=== PATIENT | male | born 1980 | race Caucasian/White ===

== ENCOUNTER → 2020-12-17 13:15 | Outpatient (CLI) | payer BC, SELFPAY ==
--- NOTE | 2020-12-17 13:17 | DI.RAD.S_ITS ---
PROCEDURE: XR CERVICAL SPINE 4V OR 5V INDICATIONS: neck pain TECHNIQUE: 5 views of the cervical spine acquired. COMPARISON: None. FINDINGS: Bones: No fractures or dislocations to the C7 level. Oblique images demonstrate no bony foraminal stenoses. Soft tissues: No prevertebral soft tissue swelling. IMPRESSION: No acute abnormality. Dictated by: Tyree Montana M.D. on 12/17/2020 at 13:52 Approved by: Tyree Montana M.D. on 12/17/2020 at 13:52
== END ==
PROVIDERS: Family Provider Family Medicine; Referring Provider Physical Medicine & Rehabilitation; Visit Provider Physical Medicine & Rehabilitation
DX: M54.2 Cervicalgia (principal)
CPT/HCPCS: 72050

== ENCOUNTER → 2021-01-09 15:29 | Outpatient (CLI) | payer BC, SELFPAY ==
--- NOTE | 2021-01-09 15:30 | DI.MRI.S_ITS ---
PROCEDURE: MR CERVICAL SPINE WO CON INDICATIONS: Cervical myeloradiculopathy TECHNIQUE: Noncontrast sagittal T1 spin echo and T2 fast spin echo, sagittal STIR, foraminal oblique sagittal T2 fast spin echo, and axial gradient echo or T2 fast spin echo through the cervical spine. COMPARISON: None. FINDINGS: Image quality: Excellent. Alignment and Curvature: Straightening of the normal lordotic curvature. Trace retrolisthesis of C5 on C6 Bone Marrow: Marrow demonstrates normal overall signal. Spinal Cord: Visualized spinal cord has normal size and signal. No cerebellar tonsillar herniation. Paraspinous Soft Tissues: No paravertebral masses. Prevertebral soft tissues are normal in thickness. C2-C3: No canal stenosis or right foraminal narrowing. Mild left foraminal stenosis. C3-C4: No canal narrowing. Mild bilateral foraminal narrowing although left slightly greater than right. C4-C5: No canal stenosis. No foraminal stenosis identified. C5-C6: Central disc osteophyte protrusion with associated mild canal narrowing. Partial effacement of the anterior thecal sac. Moderate right foraminal stenosis with nerve root compression. Mild left foraminal narrowing. C6-C7: No canal stenosis. Mild right and left foraminal stenoses. C7-T1: No canal or foraminal narrowing IMPRESSION: C5-C6 central disc osteophyte protrusion with associated mild canal narrowing Moderate right C5-C6 foraminal stenosis. Additional mild bilateral foraminal narrowing as detailed above by spinal level. Dictated by: Vernon Valentine M.D. on 01/09/2021 at 16:21 Approved by: Vernon Valentine M.D. on 01/09/2021 at 16:39
== END ==
PROVIDERS: Family Provider Family Medicine; PCP Family Medicine; Referring Provider Physical Medicine & Rehabilitation; Visit Provider Physical Medicine & Rehabilitation
DX: M50.122 Cervical disc disorder at C5-C6 level with radiculopathy (principal); M48.02 Spinal stenosis, cervical region; G95.9 Disease of spinal cord, unspecified
CPT/HCPCS: 72141

== ENCOUNTER → 2021-03-03 10:12 | Outpatient (CLI) | payer BC, SELFPAY ==
[2021-03-03 12:37] LABS: COVID19 -Nasal RAPID Negative (Negative)
== END ==
PROVIDERS: Family Provider Family Medicine; PCP Family Medicine; Visit Provider Physical Medicine & Rehabilitation
DX: Z20.822 Contact with and (suspected) exposure to COVID-19 (principal)
CPT/HCPCS: 87635; C9803

== ENCOUNTER 2021-03-05 08:47 | Outpatient (CLI) | payer BC, SELFPAY ==
[2021-03-05] VITALS (9 sets, daily range): BP systolic 120–147; BP diastolic 73–91; PULSE 75–82; RESP 12–20; TEMP 37.1; O2SAT 97–100
--- NOTE | 2021-03-05 08:49 | DI.RAD.S_ITS ---
PROCEDURE: PAIN C/T INTERLAMINAR INJECT INDICATIONS: SPINAL STENOSIS COMPARISON: [facility], MR, MR CERVICAL SPINE WO CON, 01/09/2021, 15:40. FINDINGS: Fluoroscopic spot filming was performed to verify placement of a spinal needle at the C5-C6 level, as labeled on the films. Appropriate location of the needle tip was confirmed by injection of iodinated contrast. IMPRESSION: No significant intraprocedural abnormality. Dictated by: Chidi Garcia M.D. on 03/05/2021 at 10:05 Approved by: Chidi Garcia M.D. on 03/05/2021 at 10:05
[2021-03-05] MEDS: fentaNYL 100 MCG/2 ML INJ 50 MCG IV (09:38)
[2021-03-05] MEDS: MIDAZOLAM 5 MG/5 ML VIAL IV (09:38)
[2021-03-05] MEDS: BUPIVACAINE 0.25% (PF) VIAL 2 ML INJ (09:41)
[2021-03-05] MEDS: IOPAMIDOL 15 ML VIAL 3 ML INJ (09:41)
[2021-03-05] MEDS: DEXAMETHASONE 10 MG/ML VIAL 30 MG INJ (09:42)
--- NOTE | 2021-03-05 09:55 | P.PCN_ITS ---
Date/Time/Diagnoses Date of procedure: 03/05/21 Time of procedure: 09:55 Pre-procedure diagnosis: 1. CERVICAL STENOSIS, 2. CERVICAL HNP WITH UPPER EXTREMITY RADICULAR FEATURES Post-procedure diagnosis: same Procedure Notes Procedure: 1. FLUORSCOPICALLY GUIDED CONTRAST CONTROLLED INTERLAMINAR EPIDURAL STEROID INJECTION - C5/6 TL DEEJAY Indications: Kali is referred by Dr. Posada for treatment of Cervical HNP with Upper Extremity Paresthesias. Physician: Dillon Uribe Total Fluoroscopy time (seconds): 30 Total sedation minutes: 12 Complications: none Procedure in detail & Post-procedure care: FINDINGS Cervical Stenosis due to disc deterioration and nerve root irritation and nerve root irritation DESCRIPTION OF PROCEDURE Fluoroscopically guided, contrast-controlled C5/6 translaminar epidural steroid injection with conscious sedation. Following review of allergy and review of potential side effects and complications, including, but not necessarily limited to, infection, allergic reaction, local tissue breakdown, temporary as well as permanent nerve injury, stroke, paralysis, and possible , the patient indicated that patient understood and agreed to proceed. An informed consent document was signed by the patient, witnessed by a nurse, and placed in the patient's chart. Additionally, other treatment options including modalities, medications, and physical therapy were reviewed with the patient. After review of previous anaesthesic history and IV conscious sedation the patient was deemed safe to proceed with today?s procedure with IV conscious sedation as ASA class II designation. Safety time-out was performed to confirm patient ID, procedure to be performed and site of procedure. IV sedation was accomplished with a combination of 3mg of Versed and 50mcg of Fentanyl administered by the RN after DO order, titrated to patient comfort during the course of the procedure while the patient remained responsive to all verbal commands. In the prone position, following sterile prep and drape of the cervical region, the C5/6 translaminar space was identified fluoroscopically. The skin was anesthetized via a 25-gauge 1.5-inch needle with 1% lidocaine solution. At this point, a 25-gauge, 2.5-inch short bevel spinal needle was atraumatically introduced and advanced under fluoroscopic guidance into epidural space at the C5/6 translaminar space. Depth was confirmed on lateral view. Radiological data, including multiple fluoroscopic views of the cervical spine, reveal a spinal needle at the C5/6 translaminar space. Lateral views then show placement of the needle in the epidural space. Subsequent views show contrast material flowing superiorly and inferiorly in the epidural space. DSA fluoroscopy with live contrast injection, once again, confirmed no vascular or intrathecal uptake. At this point, using loss of resistance technique with saline and air, the epidural space was entered. Following negative aspiration, injection of ap proximately 1.5 cc of Isovue-200 with live fluoroscopy in the AP view confirmed epidural flow in the epidural space without vascular or intrathecal uptake observed. Subsequently, a test dose of 1cc of 1% lidocaine solution was injected and patient was observed for two minutes without signs or symptoms of complications, including abdominal pain, shortness of breath, bilateral upper or lower extremity weakness, nausea and vomiting, prior to steroid injection. At this point, 3cc or 30mg of dexamethasone was then injected without incident. The patient tolerated the procedure well without signs or symptoms of complications prior to being transferred to the recovery area for further monitoring, The patient was then transferred to the recovery area where they were observed for an appropriate period of time after the injection. The patient reported a VAS score of 6 prior to the procedure and a post-procedure VAS of 0. POST OP INSTRUCTIONS The patient was provided a Pain Log to continue to record their response to the target-specific procedure prior to follow-up visit with the referring provider. Additionally, specific post-injection care instructions and a contact number to our office were provided if concerns arise regarding possible complications associated with the procedure are suspected.
== END 2021-03-05 10:17 | disposition home or self-care (01) ==
PROVIDERS: Family Provider Family Medicine; PCP Family Medicine; Referring Provider Physical Medicine & Rehabilitation; Visit Provider Physical Medicine & Rehabilitation
DX: M48.02 Spinal stenosis, cervical region (principal); M50.122 Cervical disc disorder at C5-C6 level with radiculopathy
CPT/HCPCS: 62321; 99152; J1100; J2250; J3010

== ENCOUNTER → 2021-05-26 10:14 | Outpatient (CLI) | payer BC, SELFPAY ==
[2021-05-26 11:22] LABS: COVID19 -Nasal RAPID Negative (Negative)
== END ==
PROVIDERS: Family Provider Family Medicine; PCP Family Medicine; Visit Provider Physical Medicine & Rehabilitation
DX: Z20.822 Contact with and (suspected) exposure to COVID-19 (principal)
CPT/HCPCS: 87635; C9803

== ENCOUNTER 2021-05-28 08:45 | Outpatient (CLI) | payer BC, SELFPAY ==
[2021-05-28] VITALS (10 sets, daily range): BP systolic 118–140; BP diastolic 75–96; PULSE 69–80; RESP 15–20; TEMP 36.3; O2SAT 98–100
--- NOTE | 2021-05-28 08:47 | DI.RAD.S_ITS ---
PROCEDURE: PAIN C/T INTERLAMINAR INJECT INDICATIONS: SPINAL STENOSIS COMPARISON: [facility], , PAIN C/T INTERLAMINAR INJECT, 03/05/2021, 10:42. FINDINGS: Fluoroscopic spot filming was performed to verify placement of a spinal needle at the C5-C6 level, as labeled on the films. Appropriate location of the needle tip was confirmed by injection of iodinated contrast. IMPRESSION: No significant intraprocedural abnormality. Dictated by: Chidi Garcia M.D. on 05/28/2021 at 9:48 Approved by: Chidi Garcia M.D. on 05/28/2021 at 9:48
[2021-05-28] MEDS: MIDAZOLAM 2 MG/2 ML VIAL IV (09:27)
[2021-05-28] MEDS: fentaNYL 100 MCG/2 ML INJ (09:33)
[2021-05-28] MEDS: IOPAMIDOL 15 ML VIAL 3 ML INJ (09:37)
[2021-05-28] MEDS: BUPIVACAINE 0.25% (PF) VIAL 30 ML (09:42)
[2021-05-28] MEDS: DEXAMETHASONE 10 MG/ML VIAL 30 MG INJ (09:43)
--- NOTE | 2021-05-28 09:54 | P.PCN_ITS ---
Date/Time/Diagnoses Date of procedure: 05/28/21 Time of procedure: 09:54 Pre-procedure diagnosis: 1. CERVICAL STENOSIS, 2. CERVICAL HNP WITH UPPER EXTREMITY RADICULAR FEATURES Post-procedure diagnosis: same Procedure Notes Procedure: 1. FLUORSCOPICALLY GUIDED CONTRAST CONTROLLED INTERLAMINAR EPIDURAL STEROID INJECTION - C5/6 TL DEEJAY Indications: Kali is referred by Dr. Posada for treatment of Cervical HNP with Upper Extremity Paresthesias. Physician: Dillon Uribe Total Fluoroscopy time (seconds): 34 Total sedation minutes: 18 Complications: none Procedure in detail & Post-procedure care: FINDINGS Cervical Stenosis due to disc deterioration and nerve root irritation and nerve root irritation DESCRIPTION OF PROCEDURE Fluoroscopically guided, contrast-controlled C5/6 translaminar epidural steroid injection with conscious sedation. Following review of allergy and review of potential side effects and complications, including, but not necessarily limited to, infection, allergic reaction, local tissue breakdown, temporary as well as permanent nerve injury, stroke, paralysis, and possible , the patient indicated that patient understood and agreed to proceed. An informed consent document was signed by the patient, witnessed by a nurse, and placed in the patient's chart. Additionally, other treatment options including modalities, medications, and physical therapy were reviewed with the patient. After review of previous anaesthesic history and IV conscious sedation the patient was deemed safe to proceed with today?s procedure with IV conscious sedation as ASA class II designation. Safety time-out was performed to confirm patient ID, procedure to be performed and site of procedure. IV sedation was accomplished with a combination of 2mg of Versed and 50mcg of Fentanyl administered by the RN after DO order, titrated to patient comfort during the course of the procedure while the patient remained responsive to all verbal commands. In the prone position, following sterile prep and drape of the cervical region, the C5/6 translaminar space was identified fluoroscopically. The skin was anesthetized via a 25-gauge 1.5-inch needle with 1% lidocaine solution. At this point, a 25-gauge, 2.5-inch short bevel spinal needle was atraumatically introduced and advanced under fluoroscopic guidance into epidural space at the C5/6 translaminar space. Depth was confirmed on lateral view. Radiological data, including multiple fluoroscopic views of the cervical spine, reveal a spinal needle at the C5/6 translaminar space. Lateral views then show placement of the needle in the epidural space. Subsequent views show contrast material flowing superiorly and inferiorly in the epidural space. DSA fluoroscopy with live contrast injection, once again, confirmed no vascular or intrathecal uptake. At this point, using loss of resistance technique with saline and air, the epidural space was entered. Following negative aspiration, injection of ap proximately 1.5 cc of Isovue-200 with live fluoroscopy in the AP view confirmed epidural flow in the epidural space without vascular or intrathecal uptake observed. Subsequently, a test dose of 1 cc of 1% lidocaine solution was injected and patient was observed for two minutes without signs or symptoms of complications, including abdominal pain, shortness of breath, bilateral upper or lower extremity weakness, nausea and vomiting, prior to steroid injection. At this point, 3cc or 30mg of dexamethasone was then injected without incident. The patient tolerated the procedure well without signs or symptoms of complications prior to being transferred to the recovery area for further monitoring, The patient was then transferred to the recovery area where they were observed for an appropriate period of time after the injection. The patient reported a VAS score of 6 prior to the procedure and a post-procedure VAS of 0. POST OP INSTRUCTIONS The patient was provided a Pain Log to continue to record their response to the target-specific procedure prior to follow-up visit with the referring provider. Additionally, specific post-injection care instructions and a contact number to our office were provided if concerns arise regarding possible complications associated with the procedure are suspected.
== END 2021-05-28 10:07 | disposition home or self-care (01) ==
LOC: RAD 08:46
PROVIDERS: Family Provider Family Medicine; PCP Family Medicine; Referring Provider Physical Medicine & Rehabilitation; Visit Provider Physical Medicine & Rehabilitation
DX: M48.02 Spinal stenosis, cervical region (principal); M50.122 Cervical disc disorder at C5-C6 level with radiculopathy
CPT/HCPCS: 62321; 99152; J1100; J2250; J3010

== ENCOUNTER → 2022-08-11 07:59 | Outpatient (CLI) | payer OTHER, SELFPAY ==
--- NOTE | 2022-08-11 08:01 | DI.RAD.S_ITS ---
PROCEDURE: XR CERVICAL SPINE 4V OR 5V INDICATIONS: NECK PAIN TECHNIQUE: 5 views of the cervical spine acquired. COMPARISON: [facility], CR, XR CERVICAL SPINE 4V OR 5V, 12/17/2020, 13:20. FINDINGS: Bones: No fractures or dislocations to the C7 level. Oblique images demonstrate no bony foraminal stenoses. No significant degenerative change. Soft tissues: No prevertebral soft tissue swelling. IMPRESSION: No acute, displaced fracture or traumatic subluxation. No significant degenerative change. Dictated by: Torey Reyes M.D. on 08/11/2022 at 8:31 Approved by: Torey Reyes M.D. on 08/11/2022 at 8:34
== END ==
PROVIDERS: Family Provider Family Medicine; PCP Physician Assistant; Referring Provider Physical Medicine & Rehabilitation; Visit Provider Physical Medicine & Rehabilitation
DX: M54.12 Radiculopathy, cervical region (principal); G95.9 Disease of spinal cord, unspecified; M50.20 Other cervical disc displacement, unspecified cervical region; F10.11 Alcohol abuse, in remission; G56.03 Carpal tunnel syndrome, bilateral upper limbs
CPT/HCPCS: 72050; 99215

== ENCOUNTER → 2022-10-05 10:57 | Outpatient (CLI) | payer OTHER, SELFPAY ==
--- NOTE | 2022-10-05 10:58 | DI.MRI.S_ITS ---
PROCEDURE: MR CERVICAL SPINE WO CON INDICATIONS: Cervical radiculopathy TECHNIQUE: Noncontrast sagittal T1 spin echo and T2 fast spin echo, sagittal STIR, foraminal oblique sagittal T2 fast spin echo, and axial gradient echo or T2 fast spin echo through the cervical spine. COMPARISON: [facility], MR, MR CERVICAL SPINE WO CON, 01/09/2021, 15:40. FINDINGS: Image quality: Excellent. Alignment and Curvature: There is normal bony alignment. Bone Marrow: Marrow demonstrates normal overall signal. Spinal Cord: Visualized spinal cord has normal size and signal. No cerebellar tonsillar herniation. Paraspinous Soft Tissues: No paravertebral masses. Prevertebral soft tissues are normal in thickness. C2-C3: Normal appearance. C3-C4: Normal appearance. C4-C5: Normal appearance. C5-C6: Central posterior disc protrusion indenting on the ventral cord. AP diameter of the canal is 7.7 mm at this location. C6-C7: Bilateral facet hypertrophy. No canal stenosis or significant foraminal stenosis. C7-T1: Bilateral facet hypertrophy. No canal stenosis or significant foraminal stenosis. IMPRESSION: 1. At C5-C6, there is a central posterior disc protrusion indenting on the ventral cord, decreasing the AP diameter of the canal to 7.7 mm. 2. Lower cervical facet arthropathy. 3. No canal stenosis at other levels. No significant foraminal stenosis. Dictated by: Raymundo Suresh M.D. on 10/05/2022 at 13:41 Approved by: Raymundo Suresh M.D. on 10/05/2022 at 13:49
== END ==
PROVIDERS: Family Provider Physician Assistant; PCP Physician Assistant; Referring Provider Physical Medicine & Rehabilitation; Visit Provider Physical Medicine & Rehabilitation
DX: M47.22 Other spondylosis with radiculopathy, cervical region (principal); G56.00 Carpal tunnel syndrome, unspecified upper limb; M50.122 Cervical disc disorder at C5-C6 level with radiculopathy; G95.9 Disease of spinal cord, unspecified
CPT/HCPCS: 72141

== ENCOUNTER → 2022-10-07 10:19 | Outpatient (CLI) | payer OTHER, SELFPAY | PROVIDERS: Absent Provider Physician Assistant; Family Provider Physician Assistant; PCP Physician Assistant; Referring Provider Physical Medicine & Rehabilitation; Visit Provider Physical Medicine & Rehabilitation | DX: G56.00 Carpal tunnel syndrome, unspecified upper limb (principal) | CPT/HCPCS: 95886; 95912 ==

== ENCOUNTER 2022-10-19 08:44 | Outpatient (CLI) | payer OTHER, SELFPAY ==
[2022-10-19] VITALS (10 sets, daily range): BP systolic 112–134; BP diastolic 70–82; PULSE 68–78; RESP 12–20; TEMP 36.1; O2SAT 96–100
--- NOTE | 2022-10-19 08:46 | DI.RAD.S_ITS ---
PROCEDURE: PAIN C/T INTERLAMINAR INJECT INDICATIONS: Cervical radiculopathy COMPARISON: [facility], , PAIN C/T INTERLAMINAR INJECT, 05/28/2021, 9:33. FINDINGS: Fluoroscopic spot filming was performed to verify placement of a spinal needle at the C6-C7 level, as labeled on the films. Appropriate location of the needle tip was confirmed by injection of iodinated contrast. IMPRESSION: No significant intraprocedural abnormality. Dictated by: Chidi Garcia M.D. on 10/19/2022 at 13:48 Approved by: Chidi Garcia M.D. on 10/19/2022 at 13:49
[2022-10-19] MEDS: MIDAZOLAM 2 MG/2 ML VIAL IV (09:34)
[2022-10-19] MEDS: fentaNYL 100 MCG/2 ML INJ 50 MCG IV (09:42)
[2022-10-19] MEDS: DEXAMETHASONE 10 MG/ML VIAL 20 MG INJ (09:43)
[2022-10-19] MEDS: BUPIVACAINE 0.25% (PF) VIAL 2 ML INJ (09:43)
[2022-10-19] MEDS: IOPAMIDOL 15 ML VIAL 3 ML INJ (09:44)
--- NOTE | 2022-10-19 09:58 | P.PCN_ITS ---
Date/Time/Diagnoses Date of procedure: 10/19/22 Time of procedure: 09:58 Pre-procedure diagnosis: 1. CERVICAL STENOSIS, 2. CERVICAL HNP WITH UPPER EXTREMITY RADICULAR FEATURES Post-procedure diagnosis: same Procedure Notes Procedure: 1. FLUORSCOPICALLY GUIDED CONTRAST CONTROLLED INTERLAMINAR EPIDURAL STEROID INJECTION - C6/7 TL DEEJAY Indications: Kali is referred by CELY Moore for treatment of Cervical HNP with Upper Extremity Paresthesias. Physician: Dillon Uribe Total Fluoroscopy time (seconds): 34 Total sedation minutes: 19 Complications: none Procedure in detail & Post-procedure care: FINDINGS Cervical Stenosis due to disc deterioration and nerve root irritation and nerve root irritation DESCRIPTION OF PROCEDURE Fluoroscopically guided, contrast-controlled C6/7 translaminar epidural steroid injection with conscious sedation. Following review of allergy and review of potential side effects and complications, including, but not necessarily limited to, infection, allergic reaction, local tissue breakdown, temporary as well as permanent nerve injury, stroke, paralysis, and possible , the patient indicated that patient understood and agreed to proceed. An informed consent document was signed by the patient, witnessed by a nurse, and placed in the patient's chart. Additionally, other treatment options including modalities, medications, and physical therapy were reviewed with the patient. After review of previous anaesthesic history and IV conscious sedation the patient was deemed safe to proceed with today?s procedure with IV conscious sedation as ASA class II designation. Safety time-out was performed to confirm patient ID, procedure to be performed and site of procedure. IV sedation was accomplished with a combination of 2mg of Versed and 50mcg of Fentanyl administered by the RN after DO order, titrated to patient comfort during the course of the procedure while the patient remained responsive to all verbal commands. In the prone position, following sterile prep and drape of the cervical region, the C6/7 translaminar space was identified fluoroscopically. The skin was anesthetized via a 25-gauge 1.5-inch needle with 1% lidocaine solution. At this point, a 25-gauge, 2.5-inch short bevel spinal needle was atraumatically introduced and advanced under fluoroscopic guidance into epidural space at the C6/7 translaminar space. Depth was confirmed on lateral view. Radiological data, including multiple fluoroscopic views of the cervical spine, reveal a spinal needle at the C6/7 translaminar space. Lateral views then show placement of the needle in the epidural space. Subsequent views show contrast material flowing superiorly and inferiorly in the epidural space. DSA fluoroscopy with live contrast injection, once again, confirmed no vascular or intrathecal uptake. At this point, using loss of resistance technique with saline and air, the epidural space was entered. Following negative aspiration, injection of appr oximately 1.5 cc of Isovue-200 with live fluoroscopy in the AP view confirmed epidural flow in the epidural space without vascular or intrathecal uptake observed. Subsequently, a test dose of 1 cc of 1% lidocaine solution was injected and patient was observed for two minutes without signs or symptoms of complications, including abdominal pain, shortness of breath, bilateral upper or lower extremity weakness, nausea and vomiting, prior to steroid injection. At this point, 2cc or 20mg of dexamethasone was then injected without incident. The patient tolerated the procedure well without signs or symptoms of complications prior to being transferred to the recovery area for further monitoring, The patient was then transferred to the recovery area where they were observed for an appropriate period of time after the injection. The patient reported a VAS score of 7 prior to the procedure and a post-procedure VAS of 1. POST OP INSTRUCTIONS The patient was provided a Pain Log to continue to record their response to the target-specific procedure prior to follow-up visit with the referring provider. Additionally, specific post-injection care instructions and a contact number to our office were provided if concerns arise regarding possible complications associated with the procedure are suspected.
== END 2022-10-19 10:15 | disposition home or self-care (01) ==
PROVIDERS: Family Provider Physician Assistant; PCP Physician Assistant; Referring Provider Physical Medicine & Rehabilitation; Visit Provider Physical Medicine & Rehabilitation
DX: M48.02 Spinal stenosis, cervical region (principal); M50.123 Cervical disc disorder at C6-C7 level with radiculopathy
CPT/HCPCS: 62321; 99152; J1100; J2250; J3010; J3490